=== PATIENT | female | born 1975 | race Caucasian/White ===

== ENCOUNTER 2017-02-10 13:40 | Day surgery (SDC) | payer OTHER ==
[~2017-02-10] VITALS: Ht 162.6 cm; Wt 80.1 kg
[2017-02-10] MEDS ORDERED: HYDR-906 PO (14:17)
[2017-02-10] MEDS ORDERED: [UNRECOGNIZED DRUG - CODE] PO (14:17)
[2017-02-10] MEDS ORDERED: FERR134T PO (14:17)
[2017-02-10] MEDS ORDERED: ACET500C5 PO (14:17)
[2017-02-10 14:18] VITALS: Ht 162.6 cm; Wt 80.1 kg
[2017-02-10 14:42] VITALS: BP 117/61; PULSE 88; RESP 22
--- NOTE | 2017-02-10 16:08 | OPPN ---
Date/Time of Note Date/Time of Note DATE: 02/10/17 TIME: 16:05 Proc Note GI Procedure Date 02/10/17 Indication: other (Dyspepsia) Pre-procedure Diagnosis Dyspepsia Post-procedure Diagnosis Impression: Mild distal esophagitis. Mild gastritis. Rule out H. pylori infection. Biopsies obtained. Plan: PPI therapy Review biopsies Follow-up as previously scheduled. . Procedure Performed: Endoscopy (With biopsies) Surgeon PEARL PACKER MD See signature line Electronic Warfare Technician none Anesthesia Type: moderate sedation (Versed 6 mg/fentanyl 100 mcg) Tourniquet Time none EBL none Transfusion required none Biopsy 1: Gastric body and antrum Grafts/Implants none Tubes/Drains none Complication(s) none Disposition: home Procedure Description Preoperative Diagnosis: After informed consent, with the patient/relatives understanding the procedure, its indications, potential risks and complications, including but not limited to : allergic reaction, bleeding, perforation or infection, and after all pertinent questions were answered to the patients satisfaction, the patient/ relatives signed witnessed informed consent. Following this, premedication was administered slowly IV push under careful cardiovascular and respiratory monitoring with pulse oximetry, automatic blood pressure, and compliance monitor. Once the sedative effect was achieved the patient was place in the left lateral decubitus, the panendoscope was introduced and advanced under visual control. Careful examination of the upper gastrointestinal tract, both on insertion as well as withdrawal of the instrument disclosing the following findings: ESOPHAGUS: the mucosa of the entire esophagus was carefully examined and showed the following findings: There is mild erythema of the mucosa at the esophagogastric junction. Otherwise the mucosa appears within normal limits. There is no evidence of varices, neoplasm, or stricture. No Hiatal Hernia identified. STOMACH: Upon entrance to the stomach air was insufflated, the gastric braun distended normally. The mucosa of the fundus, body and antrum of the stomach was carefully examined both head-on and on retroflexion, and showed the following findings: There is mild erythema and edema because of the body and antrum the stomach. Biopsies were obtained to rule out H. pylori infection. Otherwise the mucosa appears within normal limits with no abnormalities. There is no evidence of ulcers or neoplasm. PYLORUS: The pylorus was carefully examined and showed the following findings: the pylorus appears patent and within normal limits, with no evidence of gastric outlet obstruction. DUODENUM: The duodenal mucosa was carefully examined in the duodenal bulb as well as the second portion of the duodenum and showed the following findings: the mucosa appears unremarkable with no evidence of duodenitis, ulcer or neoplasm. Copies To: CC: PEARL PACKER MD, MORDO MD Feb 10, 2017 16:08
[2017-02-10] MEDS ORDERED: FENTAnyl 50 MCG/ML VIAL ONE (16:22)
[2017-02-10] MEDS ORDERED: MIDAZOLAM 1 MG/ML 2 ML INJ ONE ×3 (16:22)
== END 2017-02-10 17:04 | disposition home or self-care (01) ==
LOC: GIL 13:40
PROVIDERS: ATTEND Internal Medicine Gastroenterology
DX: K29.50 Unspecified chronic gastritis without bleeding (principal); B96.81 Helicobacter pylori [H. pylori] as the cause of diseases classified elsewhere; K20.9 Esophagitis, unspecified; E66.9 Obesity, unspecified; Z68.30 Body mass index [BMI] 30.0-30.9, adult
CPT/HCPCS: 84703; 88305; 88312; J2250; J3010